=== PATIENT | male | born 1995 | race Caucasian/White ===

== ENCOUNTER 2022-01-13 11:10 | Emergency (ER) | payer OTHER, SELFPAY ==
--- NOTE | ~2022-01-13 | XR_ITS ---
EXAMINATION: XR shoulder RT min 2V DATE: 01/13/2022 12:52 INDICATION: Right shoulder pain. TECHNIQUE: 5 views of right shoulder were obtained. COMPARISON: None. FINDINGS: Bone alignment is normal. No fracture. There is mild osteoarthritis of acromioclavicular nargis int. Glenohumeral joint is normal. IMPRESSION: 1. Mild acromioclavicular joint osteoarthritis. Reviewed, dictated and finalized at location A.
--- NOTE | ~2022-01-13 | CT_ITS ---
EXAMINATION: CT orbit BI wo con DATE: 01/13/2022 14:05 INDICATION: Metal in left eye. TECHNIQUE: Computed tomography (CT) of the orbits was performed without intravenous contrast. Automat ed exposure control and iterative reconstruction technique were employed. The dose-length product was 163.78 mGy-cm. COMPARISON: None FINDINGS: There is rightward deviation of anterior nasal septum and leftward deviation of posterior n nicole septum. No fracture. The extraocular muscles, optic nerves, and ocular globes are normal. There is a 1 mm calcification versus foreign body in the skin of the left cheek. IMPRESSION: 1. Punctate calcification versus foreign body in the skin of the left cheek. Reviewed, dictated and finalized at location A.
--- NOTE | 2022-01-13 12:40 | ED.GENADULT ---
HPI - General Adult General Chief complaint: Eye Problems Stated complaint: L eye, R. shoulder pain Time Seen by Provider: 01/13/22 11:54 History of Present Illness HPI narrative: Is a 26-year-old male presenting to ED with 2 complaints. First complaint is left eye pain. 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 He is concerned he got something in his eye on Tuesday 2 days ago. He went saw an urgent care and was diagnosed with corneal abrasion with their concern that there may be a piece of metal deeper in the eye. Patient has complained of pain itching decreased visual acuity. He denies any purulent discharge from the eye. The 2nd complaint is right shoulder pain. The patient recently started working out. He is now having pain in the lateral deltoid that is associated with some numbness and tingling in his middle finger. The patient notes no weakness in the shoulder elbow or hand. He has not taken anything for pain control. Related Data Allergies Allergy/AdvReac Type Severity Reaction Status Date / Time No Known Allergies Allergy Verified 01/13/22 11:44 Review of Systems Review of Systems: CONSTITUTIONAL: Denies fever, chills, or sweats. EYES: admits visual changes, redness, or discharge. ENT: Denies rhinorrhea, congestion, sore throat, or otalgia. CARDIOVASCULAR: Denies chest pain, palpitations, or edema. RESPIRATORY: Denies cough or dyspnea. GASTROINTESTINAL: Denies abdominal pain, nausea, vomiting, or diarrhea. GENITOURINARY: Denies dysuria or hematuria. SKIN: Denies rash or itching. MUSCULOSKELETAL: Denies back pain, joint pain, or myalgia. NEUROLOGIC: Denies headache, numbness, or weakness. PSYCHIATRIC: Denies anxiety or depression Exam Narrative: APPEARANCE: No apparent distress. Head atraumatic. EYES: PERRLA/EOMI, Patient has significant injection of the left eye. Fluorescein staining revealed a small foreign body at 5:00 a.m. intra-ocular pressure 15 bilaterally, pain was not completely removed with topical anesthetics. NOSE: Normal no drainage NECK: Supple, Trachea midline RESPIRATORY: CTAB, No increased work of breathing. CARDIOVASCULAR: S1S2 appreciated ABDOMINAL: Soft, nontender, nondistended, MUSCULOSKELETAl: No obvious deformities, Full exam of right upper extremity revealed no weakness chronic rotator cuff, elbow or wrist. Receiving Supervisor strength is intact. Cap refill is less than 2 seconds. Pulses +2 radial and ulnar distribution. NEURO: Alert. Moving 4/4 extremities SKIN:: Warm, dry. Normal color PSYCHIATRIC: Normal affect Medical Decision Making MDM Narrative Medical decision making narrative: This is a 18-year-old male coming in for left eye pain. Workup revealed a metallic foreign body in the left eye. It has been in for over [address] orbits not reveal foreign body inside the globe. Patient will be discharged with pain control and urgent Ophthalmology follow-up. The patient's shoulder x-ray revealed arthritis of the shoulder. He is having paresthesias and a T7 distribution. His pain is improved with NSAIDs. He will be discharged follow-up with his primary care physician. Discharge Plan Discharge Clinical Impression: Foreign body in eyeball, left, Corneal abrasion, Acute shoulder pain Patient Disposition: Home, Self-Care Condition: Stable Instructions: Antibiotic Form, Corneal Abrasion (DC) Prescriptions: New ibuprofen 800 mg tablet 800 mg PO TID PRN (Reason: pain) 7 Days Qty: 21 0RF acetaminophen [Tylenol 8 Hour] 650 mg tablet extended release 1,300 mg PO Q8H PRN (Reason: pain) 7 Days Qty: 42 0RF ofloxacin [Ocuflox] 0.3 % drops See Rx Instructions .ROUTE .COMPLEX Qty: 10 0RF Rx Instructions: put 1-2 drps into affected eye(s) every 6hr x 2 days, then 1-2 drps 4 times/day days 3-7 Follow-up/Referrals: PHYSICIAN,REEL SLITTER [Primary Care Provider] -
[2022-01-13] MEDS: TETRACAINE HCL 0.5% OPHTH SOLN 4 ML BTL 1 DROP EACH EYE (12:55)
[2022-01-13] MEDS: FLUORESCEIN SOD 1 MG/STRIP EACH EYE (12:55)
[2022-01-13] MEDS: HYDROcodone/acetaminophen (*CRX) 5-325 MG TABLET 2 TAB PO (12:56)
[2022-01-13] MEDS: IBUPROFEN 400 MG TABLET 800 MG PO (12:56)
[2022-01-13 15:26] VITALS: BP 112/75; PULSE 75; O2SAT 98
== END 2022-01-13 15:27 | disposition home or self-care (01) ==
PROVIDERS: Emergency Provider Emergency Medicine
DX: T15.82XA Foreign body in other and multiple parts of external eye, left eye, initial encounter (principal); T15.02XA Foreign body in cornea, left eye, initial encounter; M25.511 Pain in right shoulder; W26.9XXA Contact with unspecified sharp object(s), initial encounter
CPT/HCPCS: 70480; 73030; 99284; A9270

== ENCOUNTER 2024-01-30 12:40 | Emergency (ER) | payer OTHER, SELFPAY ==
--- NOTE | 2024-01-30 12:41 | ED.MALEGU ---
HPI - Male Genitourinary General Chief complaint: Urogenital-Male Stated complaint: Uti Symptoms Time Seen by Provider: 01/30/24 12:41 Source: patient Mode of arrival: ambulatory Limitations: no limitations History of Present Illness HPI Narrative: Sohail is a 28-year-old male patient presenting to the clinic today with complaints of a possible UTI. He reports he has been having burning with urination and urinary frequency for the past 3 days. Two days ago he did notice some white penile discharge. He is in a monogamous relationship with his and is not concern for STIs. Denies any fevers, chills, body aches, back pain, or abdominal pain. Related Data Allergies Allergy/AdvReac Type Severity Reaction Status Date / Time No Known Allergies Allergy Verified 01/30/24 12:51 Review of Systems Review of Systems: Pertinent positives per HPI. Patient denies any fever, chills, rash, headache, visual changes, dizziness, cough, runny nose, sore throat, shortness of breath, chest pain, palpitations, nausea, vomiting, diarrhea, constipation, abdominal pain. [facility] Past Medical History Medical History (Updated 01/30/24 @ 12:58 by Brando Dumont APRN) Enlarged heart Hx of testicular cancer YOEL (obstructive sleep apnea) Surgical History Surgical History S/P ACL repair S/P MCL repair Family History Family History Father Hypertension Mother Hypertension Thyroid disorder Lupus Sibling Hypertension Grandparent Cerebrovascular accident Hypertension Heart problem Diabetes mellitus Alcoholism Testicular cancer Grandparent Leukemia Heart problem Cerebrovascular accident Hypertension Social History Social History Smoking status: Former smoker Second hand tobacco smoke exposure: Yes Alcohol intake: current Alcohol use details: 3-5 drinks a week Substance use: never Do You Feel Safe in your Home?: Yes Lack of Transportation: No Lack of Food: Never True Current Housing: I Have Housing Concerned About Future Housing: No Difficulty Paying Gas/Electric Bills: No Difficulty Paying for Meds: No Currently Unemployed: No Education: Bachelor's Degree Difficulty w/ Childcare or Family Care: No Living arrangements: with family Occupation/Education: occupation Additional occupation/education comments: [employer] of Operations[employer] Gender identity (if verbalized by the patient): Male Agree to blood products: Yes Comments At the time of my signature, I reviewed and agree with the nursing past medical, surgical, social, and family history. There is no relevant family history pertinent to the patient complaint. Exam Narrative: General: Well-developed, well nourished, in no apparent distress. Head: Normocephalic, atraumatic. Cardio: Regular rate and rhythm, s1 and s2 normal, no murmur appreciated. Resp: Clear to auscultation bilaterally, no rhonchi, rales, wheezing or rubs. Abdomen: Soft, pliable, bowel sounds present in all quadrants, non-tender to palpation, no organomegly, no CVAT tenderness. : Deferred Course Course Emergency Course: Portions of this record may have been created with voice recognition software. Level of Care: Express Care Visit Vital Signs Vital signs: Vital Signs Temperature 37.1 C 01/30/24 12:49 Pulse Rate 97 01/30/24 12:49 Respiratory Rate 15 01/30/24 12:49 Blood Pressure 122/84 01/30/24 12:49 Pulse Oximetry 100 01/30/24 12:49 Oxygen Delivery Room Air 01/30/24 12:49 Temperature 37.1 C 01/30/24 12:49 Pulse Rate 97 01/30/24 12:49 Respiratory Rate 15 01/30/24 12:49 Blood Pressure 122/84 01/30/24 12:49 Pulse Oximetry 100 01/30/24 12:49 Oxygen Delivery Room Air 01/30/24 12:49 Vital signs rev
[2024-01-30 12:49] VITALS: BP 122/84; PULSE 97; RESP 15; TEMP 37.1; O2SAT 100
[2024-01-30 12:58] LABS: EDUAAPPEAR Cloudy; EDUABILI Negative; EDUABLOOD Trace; EDUACOLOR1 Yellow; EDUAGLUCOSE Negative; EDUAKETONE Negative; EDUALEUKO 3+; EDUANITRATE Negative; EDUAPROTEIN 1+; EDUAUROBILI 0.2
[2024-01-30 19:37] LABS: Trichomonas Vag PCR NOT DETECTED (NOT DETECTE)
[2024-01-30 19:59] LABS: Chlamydia trachomatis DETECTED (NOT DETECTE); Neisseria gonorrhoeae PCR DETECTED (NOT DETECTE)
== END 2024-01-30 13:01 | disposition home or self-care (01) ==
PROVIDERS: Emergency Provider Nurse Practitioner Family
DX: N30.01 Acute cystitis with hematuria (principal); A74.9 Chlamydial infection, unspecified; A54.9 Gonococcal infection, unspecified
CPT/HCPCS: 81003; 87086; 87491; 87591; 87661; 99213; G0463